=== PATIENT | male | born 1975 | race Hispanic/Latino ===

== ENCOUNTER 2019-07-30 12:31 | Emergency (ER) | payer BC, OTHER ==
[2019-07-30] MEDS ORDERED: Iopamidol-370 76% 500 ML 1 ML ONE (13:09)
[2019-07-30 13:19] LABS: #Basophils 0.1 thou/uL (0.0-0.2); #Lymphocytes 1.7 thou/uL (1.20-3.40); #Monocytes 0.6 thou/uL (0.11-0.59); #Neutrophils 7.9 thou/uL (1.40-6.50); %Basophils 0.6 % (0.0-1.0); %Eosinophils 0.2 % (0.0-10.0); %Lymphocytes 16.8 % (21.0-51.0); %Monocytes 5.7 % (0.0-10.0); %Neutrophils 76.7 % (42.0-75.0); Hemoglobin 14.6 g/dL (14.0-18.0); Mean Corpuscular HGB CONC 33.1 g/dL (32.0-36.0); Mean Corpuscular Hemoglobin 30.1 pg (27.0-31.0); Platelet Count 205 thou/uL (130-400); RBC Distribution Width 11.8 % (11.5-14.5); Red Blood Cell (RBC) Count 4.83 mill/uL (4.70-6.10); White Blood Cell (WBC) Count 10.3 thou/uL (4.8-10.8)
[2019-07-30 13:36] LABS: ALT (SGPT) 52 U/L (8-55); AST (SGOT) 26 U/L (5-34); Albumin 4.1 g/dL (3.5-5.0); Alkaline Phosphatase 98 U/L (40-110); Anion Gap 13 mmol/L (10-20); BUN (Urea Nitrogen) 10 mg/dL (8.9-20.6); Bilirubin, Total 0.3 mg/dL (0.2-1.2); Calc. Creatinine Clearance 0 mL/min (70-130); Calcium 9.1 mg/dL (7.8-10.44); Carbon Dioxide 23 mmol/L (22-29); Chloride 102 mmol/L (98-107); Estimated GFR-MDRD Greater than 90; Globulin 3.9 g/dL (2.4-3.5); Glucose 114 mg/dL (70-105); Lipase 22 U/L (8-78); Potassium 3.8 mmol/L (3.5-5.1); Sodium 134 mmol/L (136-145)
[2019-07-30] MEDS ORDERED: Morphine 4 MG/ML VIAL ONE ×2 (14:23→17:46)
[2019-07-30] MEDS ORDERED: Ondansetron PF 4 MG/2 ML Vial ONE (14:23)
[2019-07-30] MEDS ORDERED: Famotidine/PF 20 mg/2ml Vial ONE (14:23)
[2019-07-30 14:53] LABS: Bacteria/HPF None Seen HPF (None Seen); Bilirubin Negative (Negative); Blood, Urine 1+ (Negative); Clarity Clear (Clear); Glucose, Urine (Dipstick) Normal (Negative); Leukocyte Negative Leu/uL (Negative); Nitrite Negative (Negative); Protein, Urine (Dipstick) 50 mg/dL (Neg-Trace); RBC/HPF 0-3 HPF (0-3); Squamous Epithelial 0-3 HPF (0-3); Urobilinogen Normal mg/dL (Less than 2); WBC/HPF 0-3 HPF (0-3)
--- NOTE | 2019-07-30 18:55 | CT ---
CT ABDOMEN AND PELVIS WITH IV CONTRAST: 07/30/19 INDICATIONS: Abdominal pain with diarrhea. No comparison studies. FINDINGS: Images through the lung bases show nonspecific ground glass opacity in the posterior lung bases. No c onsolidation or confluent infiltrate. Liver, spleen, pancreas, unremarkable. Adrenal glands, kidneys and urinary bladder are unremarkable. Small bowel loops are normal caliber. There is mural thickening involving the terminal ileum. There is diffuse mural thickening involving t he entire colon. The colon is nondistended and is therefore suboptimally evaluated. The appendix is not identified. No free fluid or mass identified. Osseous structures unremarkable. IMPRESSION: Mural thickening involving the terminal ileum and the entire colon. Inflammatory bowel process should be excluded. Recommend GI consultation and colonoscopy. POS: [facility]
== END 2019-07-30 18:32 | disposition home or self-care (01) ==
LOC: ERS 12:31
DX: K52.9 Noninfective gastroenteritis and colitis, unspecified (principal)
CPT/HCPCS: 36415; 74177; 80053; 81003; 81015; 83605; 83690; 85025; 96374; 96375; 96376; J2270; J2405; Q9967; S0028